=== PATIENT | female | born 1965 | race Caucasian/White ===

== ENCOUNTER 2016-11-29 18:16 | Emergency (ER) | payer OTHER ==
[~2016-11-29] VITALS: Ht 185.4 cm; Wt 112.4 kg
[~2016-11-29 18:16] MED LIST: IBUP-1451 PO
[2016-11-29 18:24] VITALS: TEMP 36.6; Ht 185.4 cm; Wt 112.4 kg
[2016-11-29] MEDS ORDERED: IBUPROFEN 800 MG TAB PO STA (18:33)
[2016-11-29] MEDS ORDERED: ACETAMINOPHEN 500 MG TAB PO STA (18:33)
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
[2016-11-29] MEDS ORDERED: OXYC1TAB3 PO (20:06)
[2016-11-29] MEDS ORDERED: DIAZEPAM 5MG TAB PO STA (20:06)
[2016-11-29] MEDS ORDERED: IBUP-1428 PO (20:06)
[2016-11-29] MEDS ORDERED: EMPTY 8 DRAM VIAL ONE (20:10)
[2016-11-29] MEDS ORDERED: OXYCODONE IR HOME PACK PO ONE (20:15)
[2016-11-29 20:20] VITALS: BP 128/78; PULSE 65; O2SAT 98
== END 2016-11-29 20:30 | disposition home or self-care (01) ==
LOC: C.EDB 18:17 → C.EDC 20:30
DX: S13.4XXA Sprain of ligaments of cervical spine, initial encounter (principal); S09.90XA Unspecified injury of head, initial encounter; S43.402A Unspecified sprain of left shoulder joint, initial encounter; V43.53XA Car driver injured in collision with pick-up truck in traffic accident, initial encounter; Y92.488 Other paved roadways as the place of occurrence of the external cause; Z83.3 Family history of diabetes mellitus; Z82.49 Family history of ischemic heart disease and other diseases of the circulatory system; Z84.1 Family history of disorders of kidney and ureter; F17.210 Nicotine dependence, cigarettes, uncomplicated